=== PATIENT | female | born 1950 | race Caucasian/White ===

== ENCOUNTER 2024-05-15 00:24 | Emergency (ER) | payer BC ==
[~2024-05-15] VITALS: Ht 162.6 cm; Wt 72.6 kg
[2024-05-15] MEDS: IV NS 0.9% 1,000 ML BAG IV ONE ×2 (01:04→04:17)
[2024-05-15 01:08] LABS: BASOPHILS % (AUTO) 0.6 % (0.0-2.0); EOSINOPHILS # (AUTO) 0.2 K/uL (0.0-0.7); EOSINOPHILS % (AUTO) 2.9 % (0.0-6.0); HEMATOCRIT 36 % (33-45); HEMOGLOBIN 11.7 g/dL (11.5-14.8); LYMPHOCYTES # (AUTO) 2.2 K/uL (0.8-4.8); LYMPHOCYTES % (AUTO) 29.1 % (20.0-44.0); MEAN CORPUSCULAR HEMOGLOBIN 28 PG (26.0-33.0); MEAN CORPUSCULAR HGB CONC 33 g/dl (31.0-36.0); MEAN CORPUSCULAR VOLUME 85 fL (82-100); MONOCYTES # (AUTO) 0.7 K/uL (0.1-1.30); MONOCYTES % (AUTO) 9.4 % (2.0-12.0); NEUTROPHILS # (AUTO) 4.3 K/uL (1.8-8.9); PLATELET COUNT (AUTO) 233 K/uL (150-450); RED BLOOD CELL COUNT(AUTO) 4.22 MIL/uL (4.0-5.2); RED CELL DISTRIBUTION WIDTH 12.7 % (11.5-15.0); WHITE BLOOD COUNT (AUTO) 7.5 K/uL (4.3-11.0)
[2024-05-15 01:14] LABS: ABG OXYGEN SATURATION 97.5 % (94.0-98.0); ABG PCO2 29.8 mmHg (32.0-45.0); ABG PH 7.478 (7.350-7.450); ABG PO2 101.2 mmHg (83.0-108.0); ABG TOTAL HEMOGLOBIN 12.3 G/dL (12.0-16.0); COHb 0.3 % (0.5-1.5); O2Hb 97.2 % (94.0-97.0); SITE, ABG RIGHT RADIAL
[2024-05-15 01:19] LABS: INR 0.92 (0.91-1.10); PARTIAL THROMBOPLASTIN TIME 24.3 SEC (24.3-34.3); PROTHROMBIN TIME 9.8 SECS (9.2-11.1)
[2024-05-15 01:21] LABS: ALANINE AMINOTRANSFERASE 27 U/L (12-78); ALBUMIN 3.8 g/dL (3.4-5.0); ALKALINE PHOSPHATASE 82 U/L (46-116); ASPARTATE AMINOTRANSFERASE 11 U/L (15-37); BILIRUBIN,DIRECT 0.2 mg/dL (0.0-0.2); BILIRUBIN,TOTAL 0.7 mg/dL (0.2-1.0); CALCIUM, SERUM 9.8 mg/dL (8.5-10.1); CARBON DIOXIDE 27 mmol/L (21-32); CHLORIDE 93 mmol/L (98-107); CREATININE 1.4 mg/dL (0.6-1.3); LIPASE 60 U/L (16-77); POTASSIUM 5.1 mmol/L (3.5-5.1); SODIUM SERUM 130 mmol/L (136-145); TOTAL PROTEIN, SERUM 7.3 g/dL (6.4-8.2); UREA NITROGEN, BLOOD 30 mg/dL (7-18)
[2024-05-15 01:40] LABS: APPEARANCE,URINE CLEAR (CLEAR); BILIRUBIN,URINE NEGATIVE (NEGATIVE); BLOOD, URINE NEGATIVE Ery/uL (NEGATIVE); COLOR,URINE YELLOW (YELLOW); KETONES,URINE 1+ mg/dL (NEGATIVE); LEUKOCYTE ESTERASE ,URINE NEGATIVE (NEGATIVE); NITRITE, URINE NEGATIVE (NEGATIVE); PH,URINE 5.5 (5.0-8.0); PROTEIN,URINE NEGATIVE (NEGATIVE); UGLUCOSE NEGATIVE (NEGATIVE); UROBILINOGEN,URINE 0.2 EU/dL (0.2)
[2024-05-15 01:43] LABS: GLUCOSE 592 mg/dL (74-106)
[2024-05-15 05:30] VITALS: BP 128/79; TEMP 97.9; O2SAT 95
== END 2024-05-15 06:50 | disposition home or self-care (01) ==
LOC: ER 00:33
DX: E11.65 Type 2 diabetes mellitus with hyperglycemia (principal); E87.20 Acidosis, unspecified; Z79.4 Long term (current) use of insulin; Z88.1 Allergy status to other antibiotic agents; Z88.2 Allergy status to sulfonamides
CPT/HCPCS: 99284; 96360; 96361; 93005; 82803; 85025; 80048; 82010; 83690; 80076; 81003; 36415; 85730; 82962 ×5; 36600; J7030 ×2

== ENCOUNTER 2024-07-07 13:39 | Inpatient (IN) | payer BC ==
[~2024-07-07] VITALS: Ht 160 cm; Wt 70.8 kg
[2024-07-07] MEDS ORDERED: [UNRECOGNIZED DRUG - OTHER] PO (14:53)
[2024-07-07] MEDS ORDERED: INSU100I40 SQ ×2 (14:53)
[2024-07-07] MEDS ORDERED: CHOL200026 PO (14:53)
[2024-07-07] MEDS ORDERED: BLOO-668 IN (14:53)
[2024-07-07] MEDS ORDERED: LISI-768 PO (14:53)
[2024-07-07] MEDS ORDERED: CRAN500T3 PO (14:53)
[2024-07-07] MEDS ORDERED: ATOR20TA PO (14:53)
[2024-07-07] MEDS ORDERED: LEVO500T90 PO (14:53)
[2024-07-07] MEDS ORDERED: [UNRECOGNIZED DRUG - CODE] PO (14:53)
[2024-07-07] MEDS ORDERED: INSU100V7 SQ (14:53)
[2024-07-07] MEDS ORDERED: GABA-532 PO (14:53)
[2024-07-07] MEDS ORDERED: CEFP200T14 PO (14:53)
[2024-07-07] MEDS ORDERED: BENZ-13 PO (14:53)
[2024-07-07] MEDS: IV NS 0.9% 500 ML BAG IV ONE (14:58)
[2024-07-07 14:59] LABS: BASOPHILS # (AUTO) 0.1 K/uL (0.0-0.2); BASOPHILS % (AUTO) 0.6 % (0.0-2.0); EOSINOPHILS % (AUTO) 0.3 % (0.0-6.0); HEMATOCRIT 41 % (33-45); HEMOGLOBIN 13.7 g/dL (11.5-14.8); LYMPHOCYTES # (AUTO) 1.5 K/uL (0.8-4.8); LYMPHOCYTES % (AUTO) 11.2 % (20.0-44.0); MEAN CORPUSCULAR HEMOGLOBIN 28 PG (26.0-33.0); MEAN CORPUSCULAR HGB CONC 34 g/dl (31.0-36.0); MEAN CORPUSCULAR VOLUME 83 fL (82-100); MONOCYTES # (AUTO) 0.8 K/uL (0.1-1.30); MONOCYTES % (AUTO) 6.3 % (2.0-12.0); NEUTROPHILS % (AUTO) 81.6 % (43.0-81.0); PLATELET COUNT (AUTO) 356 K/uL (150-450); RED BLOOD CELL COUNT(AUTO) 4.94 MIL/uL (4.0-5.2); RED CELL DISTRIBUTION WIDTH 13.2 % (11.5-15.0); WHITE BLOOD COUNT (AUTO) 13.4 K/uL (4.3-11.0)
[2024-07-07 15:15] LABS: ALANINE AMINOTRANSFERASE 23 U/L (12-78); ALBUMIN 3.4 g/dL (3.4-5.0); ALKALINE PHOSPHATASE 65 U/L (46-116); ASPARTATE AMINOTRANSFERASE 15 U/L (15-37); BILIRUBIN,DIRECT 0.2 mg/dL (0.0-0.2); BILIRUBIN,TOTAL 0.6 mg/dL (0.2-1.0); TOTAL PROTEIN, SERUM 7.3 g/dL (6.4-8.2)
[2024-07-07 15:36] LABS: CALCIUM, SERUM 10.1 mg/dL (8.5-10.1); CREATININE 1.5 mg/dL (0.6-1.3)
[2024-07-07 15:51] LABS: THYROID STIMULATING HORMONE 3.38 uIU/mL (0.358-3.74)
[2024-07-07] MEDS ORDERED: MAGNESIUM HYDROXIDE 30 ML UDC PO PRN (18:00)
[2024-07-07] MEDS ORDERED: MAG HYDROX/AL HYDROX/SIMETH 30 ML UDC PO PRN (18:00)
[2024-07-07] MEDS ORDERED: ACETAMINOPHEN 325 MG TABLET PO PRN (18:00)
[2024-07-07] MEDS ORDERED: Z GUARD REMEDY 4 OZ OINT TP PRN (18:00)
[2024-07-07] MEDS ORDERED: ONDANSETRON HCL/PF 4 MG/2 ML VIAL IVP PRN (18:00)
[2024-07-07] MEDS ORDERED: INSULIN GLARGINE, 100 UNIT/ML CARTRIDGE SQ SCH (18:30)
[2024-07-07] MEDS ORDERED: DEXTROSE 50%-WATER 50 ML DISP.SYRIN IV PRN (18:30)
[2024-07-07 20:00] VITALS: BP 136/51; TEMP 97.9; O2SAT 100
[2024-07-07] MEDS: INSULIN GLARGINE, 100 UNIT/ML CARTRIDGE SQ SCH (21:00)
[2024-07-07] MEDS ORDERED: INSULIN ASPART/LISPRO 100 UNIT/ML CARTRIDGE SQ SCH (22:00)
[2024-07-07] MEDS: ATORVASTATIN 10 MG TABLET PO SCH (22:17)
[2024-07-07] MEDS: INSULIN REGULAR, HUMAN 100 UNIT/ML 3 ML VIAL SQ PRN (22:41)
[2024-07-07] MEDS: BLOOD SUGAR DIAGNOSTIC 1 EACH STRIP IN SCH (22:44)
[2024-07-07] MEDS: IV NS 0.9% 1,000 ML IV PRN (23:08)
[2024-07-08] VITALS (7 sets, daily range): BP systolic 103–145; BP diastolic 48–98; TEMP 97.3–98; O2SAT 98–100
[2024-07-08] MEDS: LISINOPRIL (5MG) 5 MG TABLET PO SCH (08:29)
[2024-07-08] MEDS: CHOLECALCIFEROL 1,000 UNIT TABLET (VIT D3) PO SCH (08:29)
[2024-07-08] MEDS: PANTOPRAZOLE 40 MG TABLET.DR PO SCH (08:29)
[2024-07-08] MEDS: GABAPENTIN 100 MG CAPSULE PO SCH (08:29)
[2024-07-08] MEDS: BENZONATATE 100 MG CAPSULE PO SCH (08:31)
[2024-07-08] MEDS ORDERED: INSULIN ASPART/LISPRO 100 UNIT/ML CARTRIDGE SQ SCH (09:00)
[2024-07-08] MEDS ORDERED: INSULIN GLARGINE, 100 UNIT/ML CARTRIDGE SQ SCH (09:00)
[2024-07-08 09:20] LABS: BASOPHILS % (AUTO) 0.4 % (0.0-2.0); EOSINOPHILS # (AUTO) 0.2 K/uL (0.0-0.7); EOSINOPHILS % (AUTO) 1.5 % (0.0-6.0); HEMATOCRIT 38 % (33-45); HEMOGLOBIN 12.9 g/dL (11.5-14.8); LYMPHOCYTES # (AUTO) 2.5 K/uL (0.8-4.8); LYMPHOCYTES % (AUTO) 23.6 % (20.0-44.0); MEAN CORPUSCULAR HEMOGLOBIN 29 PG (26.0-33.0); MEAN CORPUSCULAR HGB CONC 34 g/dl (31.0-36.0); MEAN CORPUSCULAR VOLUME 84 fL (82-100); MONOCYTES # (AUTO) 0.9 K/uL (0.1-1.30); MONOCYTES % (AUTO) 8.4 % (2.0-12.0); NEUTROPHILS # (AUTO) 7.1 K/uL (1.8-8.9); NEUTROPHILS % (AUTO) 66.1 % (43.0-81.0); PLATELET COUNT (AUTO) 289 K/uL (150-450); RED BLOOD CELL COUNT(AUTO) 4.48 MIL/uL (4.0-5.2); RED CELL DISTRIBUTION WIDTH 13.1 % (11.5-15.0); WHITE BLOOD COUNT (AUTO) 10.7 K/uL (4.3-11.0)
[2024-07-08 09:24] LABS: CALCIUM, SERUM 10.1 mg/dL (8.5-10.1); CREATININE 1.1 mg/dL (0.6-1.3); MAGNESIUM 2.1 mg/dL (1.8-2.4); PHOSPHORUS 2.9 mg/dL (2.5-4.9); POTASSIUM 4.6 mmol/L (3.5-5.1)
[2024-07-08 11:54] LABS: THYROID STIMULATING HORMONE 2.29 uIU/mL (0.358-3.74)
[2024-07-08] MEDS: INSULIN ASPART/LISPRO 100 UNIT/ML CARTRIDGE SQ SCH (13:17)
[2024-07-08] MEDS: INSULIN GLARGINE, 100 UNIT/ML CARTRIDGE SQ SCH (22:12)
[2024-07-09] VITALS (7 sets, daily range): BP systolic 60–160; BP diastolic 46–63; TEMP 97.7–98.3; O2SAT 97–100
[2024-07-09 09:58] LABS: CREATININE 1.1 mg/dL (0.6-1.3); POTASSIUM 4.6 mmol/L (3.5-5.1)
[2024-07-09] MEDS: INSULIN ASPART/LISPRO 100 UNIT/ML CARTRIDGE SQ SCH (16:48)
[2024-07-09 19:53] LABS: APPEARANCE,URINE CLOUDY (CLEAR); BILIRUBIN,URINE NEGATIVE (NEGATIVE); BLOOD, URINE NEGATIVE Ery/uL (NEGATIVE); COLOR,URINE YELLOW (YELLOW); KETONES,URINE NEGATIVE (NEGATIVE); LEUKOCYTE ESTERASE ,URINE NEGATIVE (NEGATIVE); NITRITE, URINE NEGATIVE (NEGATIVE); PROTEIN,URINE NEGATIVE (NEGATIVE); UGLUCOSE 3+ mg/dL (NEGATIVE); UROBILINOGEN,URINE 0.2 EU/dL (0.2)
[2024-07-09 20:02] LABS: ADD URINE CULTURE YES; BACTERIA,URINE Rare /HPF (None Seen); RBC,URINE 0-2 /HPF (0-2); SQUAMOUS EPITHELIAL CELL,UR Few /HPF (None Seen); WBC,URINE 0-2 /HPF (0-3); YEAST,URINE Many /HPF (None Seen)
[2024-07-09] MEDS: INSULIN GLARGINE, 100 UNIT/ML CARTRIDGE SQ SCH (21:58)
[2024-07-10 04:00] VITALS: BP 137/63; TEMP 97.7; O2SAT 96
[2024-07-10 05:06] LABS: FOLIC ACID 9.5 ng/mL (>3.0)
[2024-07-10 07:21] LABS: CALCIUM, SERUM 9.5 mg/dL (8.5-10.1); CREATININE 0.9 mg/dL (0.6-1.3); POTASSIUM 4.4 mmol/L (3.5-5.1)
[2024-07-10 08:00] VITALS: BP 122/72; TEMP 98.1; O2SAT 100
[2024-07-10 16:00] VITALS: BP 171/77; TEMP 98.1; O2SAT 99
[2024-07-10] MEDS: INSULIN ASPART/LISPRO 100 UNIT/ML CARTRIDGE SQ SCH (18:11)
[2024-07-10 20:00] VITALS: BP 144/60; TEMP 98.2; O2SAT 100
[2024-07-11] VITALS (8 sets, daily range): BP systolic 75–151; BP diastolic 51–114; TEMP 97.8–98.2; O2SAT 100
[2024-07-11 06:06] LABS: CALCIUM, SERUM 9.3 mg/dL (8.5-10.1); CREATININE 0.9 mg/dL (0.6-1.3); POTASSIUM 4.1 mmol/L (3.5-5.1)
[2024-07-11] MEDS: FLUDROCORTISONE 0.1 MG TABLET PO SCH (11:06)
[2024-07-12 04:00] VITALS: BP 129/41; TEMP 97.7; O2SAT 100
[2024-07-12 08:00] VITALS: BP 141/62; TEMP 98.1; O2SAT 100
[2024-07-12 09:30] VITALS: BP_SYST 135; BP_SYST 141; BP_DIAS 59; BP_DIAS 61; BP_DIAS 62; TEMP 98.1; O2SAT 94
[2024-07-12 09:54] LABS: CREATININE 0.9 mg/dL (0.6-1.3); POTASSIUM 3.6 mmol/L (3.5-5.1)
[2024-07-13 17:06] LABS: VITAMIN B1 THIAMINE,WB 139.8 nmol/L (66.5-200.0)
== END 2024-07-12 15:40 | DRG 640 ==
LOC: ER 13:41 → TELE1 19:35 → MEDSG1 07-09 10:11
PROVIDERS: ADMIT Nurse Practitioner Acute Care; ATTEND Nurse Practitioner Acute Care
DX: E86.0 Dehydration (principal); N17.0 Acute kidney failure with tubular necrosis; G30.9 Alzheimer's disease, unspecified; F02.80 Dementia in other diseases classified elsewhere, unspecified severity, without behavioral disturbance, psychotic disturbance, mood disturbance, and anxiety; E11.65 Type 2 diabetes mellitus with hyperglycemia; E11.40 Type 2 diabetes mellitus with diabetic neuropathy, unspecified; B37.49 Other urogenital candidiasis; E78.5 Hyperlipidemia, unspecified; R53.1 Weakness; I10 Essential (primary) hypertension; G20.C Parkinsonism, unspecified; I95.1 Orthostatic hypotension; Z79.4 Long term (current) use of insulin; Z88.2 Allergy status to sulfonamides; G90.89 Other disorders of autonomic nervous system
CPT/HCPCS: 36415; 70450-TC; 71045-TC; 80048-TC; 80061-TC; 80076-TC; 80202-TC; 81001; 82607-TC; 82962-TC; 83690-TC; 83735-TC; 83921; 84100-TC; 84425; 84443-TC; 84484-TC; 85025-TC; 87086-TC; 93307-TC; 97110-TC; 97116-TC; 97530-TC; A4223; G0378; J1815; J7030; J7040

== ENCOUNTER 2025-06-29 12:42 | Inpatient (IN) | payer BC ==
[~2025-06-29] VITALS: Ht 160 cm; Wt 62.6 kg
[~2025-06-29 12:42] MED LIST: ATOR20TA PO; BENZ-13 PO; BLOO-668 IN; CEFP200T14 PO; CHOL200026 PO; CRAN500T3 PO; GABA-532 PO; INSU100I40 SQ; INSU100V7 SQ; LEVO500T90 PO; LISI-768 PO; [UNRECOGNIZED DRUG - CODE] PO; [UNRECOGNIZED DRUG - OTHER] PO
[2025-06-29] MEDS: IV NS 0.9% 1,000 ML BAG IV ONE (13:00)
[2025-06-29 13:13] LABS: PLATELET COUNT (AUTO) 305 K/uL (150-450); RED BLOOD CELL COUNT(AUTO) 4.65 MIL/uL (4.0-5.2); RED CELL DISTRIBUTION WIDTH 13.6 % (11.5-15.0); WHITE BLOOD COUNT (AUTO) 12.0 K/uL (4.3-11.0)
[2025-06-29 13:24] LABS: CALCIUM, SERUM 10.0 mg/dL (8.5-10.1); CREATININE 1.6 mg/dL (0.6-1.3); SODIUM SERUM 138 mmol/L (136-145); UREA NITROGEN, BLOOD 34 mg/dL (7-18)
[2025-06-29 13:29] LABS: ALCOHOL, BLOOD < 3 mg/dL (0-10); ASPARTATE AMINOTRANSFERASE 20 U/L (15-37); TOTAL PROTEIN, SERUM 7.3 g/dL (6.4-8.2)
[2025-06-29 13:30] LABS: SERUM AMMONIA 10 umol/L (11-32)
[2025-06-29 13:35] LABS: INR 0.98 (0.91-1.10)
[2025-06-29] MEDS ORDERED: TRAM50TA2 PO (14:21)
[2025-06-29] MEDS ORDERED: EMPA25TA PO (14:21)
[2025-06-29] MEDS ORDERED: SEMA0.25 SQ (14:21)
[2025-06-29] MEDS ORDERED: INSU100I30 SQ ×2 (14:21)
[2025-06-29] MEDS ORDERED: QUET25TA PO (14:21)
[2025-06-29] MEDS ORDERED: DONE10TA44 PO (14:21)
[2025-06-29 16:00] VITALS: BP 144/73; TEMP 98.2; O2SAT 98
[2025-06-29 16:08] LABS: APPEARANCE,URINE CLEAR (CLEAR); BLOOD, URINE TRACE-INTA Ery/uL (NEGATIVE); LEUKOCYTE ESTERASE ,URINE 2+ (NEGATIVE); NITRITE, URINE NEGATIVE (NEGATIVE); UGLUCOSE 2+ mg/dL (NEGATIVE)
[2025-06-29 16:15] LABS: ADD URINE CULTURE YES; SQUAMOUS EPITHELIAL CELL,UR Moderate /HPF (None Seen)
[2025-06-29 16:33] LABS: AMPHETAMINE, URINE NEGATIVE (NEGATIVE); BARBITURATE, URINE NEGATIVE (NEGATIVE); BENZODIAZEPINE, URINE NEGATIVE (NEGATIVE); CANNABINOID, URINE NEGATIVE (NEGATIVE); COCCAINE, URINE NEGATIVE (NEGATIVE); OPIATE, URINE NEGATIVE (NEGATIVE)
[2025-06-29 20:00] VITALS: BP 129/55; TEMP 99.1; O2SAT 97
[2025-06-29] MEDS ORDERED: QUETIAPINE FUMARATE 25 MG TABLET PO PRN (21:00)
[2025-06-29] MEDS ORDERED: MAGNESIUM HYDROXIDE 30 ML UDC PO PRN (21:00)
[2025-06-29] MEDS ORDERED: ONDANSETRON HCL/PF 4 MG/2 ML VIAL IVP PRN (21:00)
[2025-06-29] MEDS ORDERED: DEXTROSE 50%-WATER 50 ML DISP.SYRIN IV PRN (21:00)
[2025-06-29] MEDS ORDERED: Z GUARD REMEDY 4 OZ OINT TP PRN (21:00)
[2025-06-29] MEDS ORDERED: ACETAMINOPHEN 325 MG TABLET PO PRN (21:00)
[2025-06-29] MEDS: CEFTRIAXONE 1 G in IV D5W 50 ML IV SCH (21:11)
[2025-06-29] MEDS: DONEPEZIL 5 MG TABLET PO SCH (21:20)
[2025-06-29] MEDS: ATORVASTATIN 10 MG TABLET PO SCH (21:21)
[2025-06-29] MEDS: ENOXAPARIN SODIUM 30 MG/0.3 ML DISP.SYRIN SQ SCH (21:22)
[2025-06-29] MEDS: BLOOD SUGAR DIAGNOSTIC 1 EACH STRIP IN SCH (21:28)
[2025-06-29] MEDS: INSULIN GLARGINE, 100 UNIT/ML CARTRIDGE SQ SCH (21:29)
[2025-06-30 04:00] VITALS: BP 109/55; TEMP 98.8; O2SAT 97
[2025-06-30 07:15] LABS: PLATELET COUNT (AUTO) 344 K/uL (150-450); RED BLOOD CELL COUNT(AUTO) 4.51 MIL/uL (4.0-5.2); RED CELL DISTRIBUTION WIDTH 13.6 % (11.5-15.0); WHITE BLOOD COUNT (AUTO) 11.6 K/uL (4.3-11.0)
[2025-06-30 07:29] LABS: CALCIUM, SERUM 9.5 mg/dL (8.5-10.1); CREATININE 1.4 mg/dL (0.6-1.3); PHOSPHORUS 3.4 mg/dL (2.5-4.9); SODIUM SERUM 143.0 mmol/L (136-145); UREA NITROGEN, BLOOD 31.0 mg/dL (7-18)
[2025-06-30] MEDS: PANTOPRAZOLE 40 MG TABLET.DR PO SCH (07:30)
[2025-06-30 08:00] VITALS: BP 163/66; TEMP 98.8; O2SAT 97
[2025-06-30 08:42] LABS: LDL 105.0 mg/dL (0-99)
[2025-06-30] MEDS: GABAPENTIN 100 MG CAPSULE PO SCH (08:52)
[2025-06-30] MEDS: LISINOPRIL (5MG) 5 MG TABLET PO SCH (08:53)
[2025-06-30 12:00] VITALS: BP 138/64; TEMP 98.5; O2SAT 97
[2025-06-30] MEDS: INSULIN REGULAR, HUMAN 100 UNIT/ML 3 ML VIAL SQ PRN (12:10)
[2025-06-30] MEDS ORDERED: CEPH500C2 PO (14:27)
[2025-06-30] MEDS: CHLORHEXIDINE GLUCONATE 4% 118 ML BOTTLE TP SCH (14:52)
[2025-06-30 16:00] VITALS: BP 118/79; TEMP 98.5; O2SAT 97
== END 2025-06-30 18:37 | DRG 280 ==
LOC: ER 12:43 → TELE1 14:34
PROVIDERS: ADMIT Nurse Practitioner Acute Care; ATTEND Nurse Practitioner Acute Care
DX: I25.10 Atherosclerotic heart disease of native coronary artery without angina pectoris (principal); G93.41 Metabolic encephalopathy; I21.A1 Myocardial infarction type 2; Z66 Do not resuscitate; N17.9 Acute kidney failure, unspecified; L03.115 Cellulitis of right lower limb; N39.0 Urinary tract infection, site not specified; E11.649 Type 2 diabetes mellitus with hypoglycemia without coma; I10 Essential (primary) hypertension; F03.90 Unspecified dementia, unspecified severity, without behavioral disturbance, psychotic disturbance, mood disturbance, and anxiety; Z88.2 Allergy status to sulfonamides; Z88.8 Allergy status to other drugs, medicaments and biological substances; Z88.6 Allergy status to analgesic agent; Z79.4 Long term (current) use of insulin; Z79.899 Other long term (current) drug therapy; Z79.85 Long-term (current) use of injectable non-insulin antidiabetic drugs; M89.8X9 Other specified disorders of bone, unspecified site; E78.5 Hyperlipidemia, unspecified; E11.65 Type 2 diabetes mellitus with hyperglycemia
CPT/HCPCS: 36415; 70450-TC; 71045-TC; 72125-TC; 80048-TC; 80061-TC; 80076-TC; 81001; 82140-TC; 82962-TC; 83735-TC; 84100-TC; 84443-TC; 84484-TC; 85025-TC; 85730-TC; 87081-TC; 87086-TC; 97110-TC; 97116-TC; 97530-TC; A4223; G0378; G0480; J0696; J1650; J1815; J7030; J7050; J7060